=== PATIENT | male | born 1970 | race Caucasian/White ===

== ENCOUNTER 2020-01-06 10:43 | Outpatient (CLI) | payer OTHER ==
--- NOTE | 2020-01-06 10:54 | SLEEP CARE CONSULTATION ---
Information from patient questionnaire entered by Sarai Adan. I have reviewed and concur with the information entered by Sarai Adan. This document represents the service I personally performed and the decisions made by me, Shahana Wilson ARNP. History of Present Illness Service Date and Time: 01/06/2020 1020 Reason for Visit: New patient Chief Complaint: reports: Unrefreshed sleep, Snoring (for a couple years), Excessive daytime sleepiness (needs a nap daily), Observed pauses in breathing (seen by SO), Frequent awakenings at night. denies: Insomnia, Fatigue Date of Onset: 1+ YEARS Usual bedtime: [id number]; weekends 0 Time it takes to fall asleep: 10-15 minutes Snores at night: Yes Observed to quit breathing while asleep: Yes Sleeps alone due to snoring: Yes (sometimes) Number of times waking at night: 2-4 Reasons for waking at night: reports: Snoring (especially on his back), Gasping for air, Bathroom, Other (has dreams of being underwater/swimming and then he comes up for air, once a week). 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 His current complaints are unrefreshed sleep, observed pauses in breathing, excessive daytime sleepiness and frequent night awakenings. He states in the last 1-2 years he has had increasing loudness of his snore and his significant other has had to sleep in another room at times. She has witnessed him stop breathing while asleep. Recently, they went on a trip with their 3 children sharing the same hotel room and all were concerned by the snoring and pauses in breathing they witnessed. He decided at that time he needed to get it checked out. His mother and two brothers are all on CPAP machines for sleep apnea. He has always been borderline hypertensive but never had to go on medication. He has had a surgery to repair a deviated nasal septum and some nasal polyps were removed in October of 2018. He thought this might help with his snoring but it did not seem to make a difference. - Parasomnia Symptoms Ever been unable to move upon waking from sleep: Yes (rarely) Walks in sleep: No Talks in sleep: No Ever acted out dreams in sleep: Yes Ever felt weak in the knees when startled or emotional: No Bothered by creepy, crawly, restless sensations in legs: No Problems with memory or concentration: No Subjective Initial [place] Sleepiness Scale score: 12 (in 2019) Past Medical History Past Medical History: reports: Other (some reflux in past related to stress and sometimes with alcohol). 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 Patient is Single and lives in [place]. Have you smoked in the past 12 months: No Alcohol use: Yes Alcohol amount and frequency: 3-4 weekly Caffeine use: Yes Caffeine amount and frequency: 6-8 cups/day Family History Family history of sleep disordered breathing: Yes Family Hx Sleep Apnea: Mother: Snoring, Sleep apnea - Treated, Sibling: Snoring, Sleep apnea - Treated Allergies and Home Medications Drug allergies reviewed: Yes (NKDA) Home medication list reviewed: Yes Allergy and home medication list: Flonase and Claritin, seasonal Naproxen, prn Review of Systems Weight gain over past 5 years: 15 Cardiovascular: denies: high blood pressure, palpitations, chest pain, irregular heart rate or pulse, leg or foot swelling Respiratory: denies: shortness of breath Gastrointestinal: denies: heartburn, difficulty swallowing Urinary: denies: impotence Neurological: reports: headaches (2-4 times a week, respond to coffee). denies: seizure, head trauma, speech dysfunction, gait or balance problems Psychiatric: denies: anxiety, depression, mood disorder, claustrophobia Ear/Nose/Throat: reports: sinus problems (deviated septum surgery repair and polyps removed, October 2018), wisdom teeth removed. denies: nasal congestion, nose bleeds, tonsillectomy Endocrine: denies: thyroid disease Musculoskeletal: reports: joint pain Immunologic: reports: allergies to food or environment (seasonal allergies) Physical Exam Blood Pressure: 128/72 Cuff size: long Heart Rate: 73 O2 Saturation: 96 Height: 6 ft 1 in Weight: 225 lb Body Mass Index: 29.7 BMI Classification: Overweight Neck circumference: 17 (inches) HEENT: No craniofacial malformation Nostrils: patent to airflow Turbinates: swollen Septum: deviated left Mouth and throat: narrow oropharynx Soft palate: normal Hard palate: arched Uvula: normal Uvula visualization: 50% Mallampati Class II Tongue: normal in size Tonsils: 1+ Chin and jaw: normal size and position Neck: normal w/o lymphadenopathy or thyromegaly Heart: regular rate and rhythm Lungs: clear bilaterally Impression and Plan 1. Suspected Obstructive Sleep Apnea-Hypopnea Syndrome, as suggested by a history of loud and irregular snoring, observed cessation of breath while asleep, gasping or choking in sleep, morning headache, frequent awakening during the night, unrefreshed sleep, and excessive daytime sleepiness. I reviewed with patient that a narrow oropharynx and obesity are common predisposing factors for obstructive sleep apnea-hypopnea syndrome. I recommend proceeding to polysomnography to confirm the diagnosis and to assess severity. If the patient has significant sleep disordered breathing, a manual CPAP titration study will also be performed to find the optimal treatment pressure. I informed the patient of what the sleep studies involve and after some discussion, obtained agreement to proceed. The pathophysiology of obstructive sleep apnea-hypopnea syndrome was discussed with the patient and health risks of cardiovascular and cerebrovascular disease if not treated. AASM brochure for obstructive sleep apnea-hypopnea syndrome given and reviewed. Risks of drowsy driving discussed in detail and patient advised to avoid long distance driving and to truss puller helper at the first sign of drowsiness. Patient agreed to plan. * Schedule polysomnography +- manual CPAP titration study. * Avoid long distance driving or driving when feeling sleepy. * Avoid alcohol, sedative and muscle relaxant around bedtime. * Attempt to lose weight. * Review instructions provided by trained office staff on how to prepare for the sleep study. * Return for follow-up after sleep study completed. Visit Type: In Office Time Spent with Patient (minutes): 34 Provider Statement: I spent 100% of the Face to Face Visit with the patient with greater than 50% spent counseling the patient and coordination of care.
[2020-01-06 10:55] VITALS: BP 128/72
== END 2020-01-06 10:44 | disposition home or self-care (01) ==
LOC: SC 10:43
PROVIDERS: ATTEND Nurse Practitioner Family
DX: R06.83 Snoring (principal); G47.10 Hypersomnia, unspecified; G47.8 Other sleep disorders; R06.81 Apnea, not elsewhere classified; E66.3 Overweight; Z68.29 Body mass index [BMI] 29.0-29.9, adult
CPT/HCPCS: 99204; 99212

== ENCOUNTER 2020-03-17 07:51 | Outpatient (CLI) | payer OTHER ==
--- NOTE | 2020-03-19 09:00 | MRI Report ---
PROCEDURE: Knee LT W/O INDICATIONS: LT KNEE PAIN TECHNIQUE: Noncontrast sagittal PD fast spin echo and T2 fast spin echo with fat saturation, sagittal 3-D spoile d GE with fat saturation; coronal T1 spin echo and PD fast spin echo with fat saturation, and axial P D fast spin echo with fat saturation through the knee. COMPARISON: None. FINDINGS: Image quality: Excellent. Menisci: There is increased signal in the posterior horn and body of the medial meniscus that approa ches and likely communicates with the inner third of the tibial articular surface. Additionally, ther e is a small hypointense structure adjacent to the posterior root attachment of the medial meniscus t hat may represent a small centrally displaced meniscal flap fragment. There is no significant menisca l extrusion. The lateral meniscus is intact. Cruciate ligaments: The anterior and posterior cruciate ligaments appear intact. Medial structures: The medial collateral ligament appears intact. The semimembranosus tendon insert ions appear intact. Visualized portions of the pes anserinus tendons appear normal. Lateral structures: The lateral collateral ligament, long and short heads of the biceps femoris tend on appear intact. The popliteus tendon appears intact. Iliotibial band appears normal. Anterior structures: A small enthesophyte is seen at the quadriceps tendon insertion. The patellar te ndon is intact. Patellar alignment is normal. No femoral trochlear dysplasia or ventral trochlear pr ominence. No edema in the infrapatellar fat pad. Bones and cartilage: No bone marrow contusion or acute fracture. There is mild surface irregularity of the central weightbearing portion of the medial femoral condyle articular surface. The lateral co mpartment articular cartilage is intact. There is mild surface irregularity at the median ridge of th e patella. Moderate to high-grade cartilage loss is seen at the trochlear groove with mild subchondra l edema. There is cartilage loss is poorly defined, but measures approximately 4 x 5 mm. Joint space and soft tissues: There is a small joint effusion. There is no medial popliteal cyst. M ild nonspecific prepatellar subcutaneous soft tissue edema is noted. IMPRESSION: 1. Probable horizontal oblique tear at the posterior horn and body of the medial meniscus extending to the inner third of the tibial articular surface. There is also likely a small centrally displaced meniscal flap fragment adjacent to the posterior root attachment of the medial meniscus. 2. 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 Grade 2 krystal dral malacia seen in the medial femorotibial compartment. 3. Small joint effusion. Reviewed by: Braeden Rock MD on 03/19/2020 8:58 AM PST Approved by: Braeden Rock MD on 03/19/2020 8:58 AM PST Station ID: [id number]
== END 2020-03-17 07:52 | disposition home or self-care (01) ==
LOC: DI 07:51
PROVIDERS: ATTEND Student in an Organized Health Care Education/Training Program
DX: M94.262 Chondromalacia, left knee (principal)

== ENCOUNTER 2020-05-08 20:30 | Outpatient (CLI) | payer OTHER | END 2020-05-08 20:31 | disposition home or self-care (01) | LOC: SC 20:30 | PROVIDERS: ATTEND Nurse Practitioner Family | DX: Z53.9 Procedure and treatment not carried out, unspecified reason (principal) ==

== ENCOUNTER 2020-05-21 08:59 | Outpatient (CLI) | payer OTHER | END 2020-05-21 09:00 | disposition home or self-care (01) | LOC: SC 08:59 | PROVIDERS: ATTEND Nurse Practitioner Family | DX: G47.33 Obstructive sleep apnea (adult) (pediatric) (principal); R09.02 Hypoxemia | CPT/HCPCS: 95806 ==

== ENCOUNTER 2020-05-28 13:51 | Outpatient (CLI) | payer OTHER ==
--- NOTE | 2020-05-28 14:25 | SLEEP CARE CONSULTATION ---
Information from patient questionnaire entered by Dre Martinez. I have reviewed and concur with the information entered by Dre Martinez. This document represents the service I personally performed and the decisions made by me, Yunior Hinton MD, [facility]. History of Present Illness Service Date and Time: 05/28/2020 1351 Initial [place] Sleepiness Scale score: 12 (in 2019) Current [place] Sleepiness Scale score: 12 Additional HPI information: HPI: Mr. Rdz returned for follow up of the sleep study he had last week. The test showed that mild obstructive sleep apnea-hypopnea with an AHI of 5.1 and maryjane oxygen saturation of 84%. The respiratory events occurred only during supine sleep. The patient was informed of these findings. I explained to him the pathophysiology behind obstructive sleep apnea. We then spent quite a bit of time discussing different treatment options. For mild obstructive sleep apnea, surgery and oral appliance are alternatives to nasal CPAP therapy but in moderate or severe cases, nasal CPAP is the most effective and reliable treatment. Weight loss in an obese individual is strongly recommended. After some discussion, he opted to go with the nasal CPAP therapy. I explained to him how CPAP machine works and what to expect when using the machine. He is quite familiar with the treatment because his mother uses a CPAP and is staying with him. Sleep Study - Results Type of Sleep Study: Home sleep study Prior sleep studies: No Allergies and Home Medications Drug allergies reviewed: Yes Home medication list reviewed: Yes Review of Systems Review of systems same as previous: Yes Physical Exam Vital signs obtained and entered by: To minimize the risk of COVID-19 exposure, detailed exam was not perfo Height: 6 ft 1 in Weight: 225 lb Body Mass Index: 29.7 BMI Classification: Overweight Impression and Plan IMPRESSION: 1. Obstructive Sleep Apnea-Hypopnea Syndrome, mild, associated with mild hypoxemia. Possibly, this is the cause of the patients symptoms of unrefreshed sleep, persistent fatigue, and excessive daytime sleepiness. As mentioned above, the patient will be started on an CPAP set at 5 - 15 cmH2O. Depending on his response and compliance he may be brought back for an overnight CPAP titration study. PLAN: 1. Prescription made for an autoCPAP, heated humidifier, and related supplies. 2. Attempt to lose weight and avoid alcohol consumption near bedtime. 3. Return for a follow up after a month of using CPAP. Visit Type: In Office Time Spent with Patient (minutes): 20 Provider Statement: I spent 100% of the Face to Face Visit with the patient with greater than 50% spent counseling the patient and coordination of care.
== END 2020-05-28 13:52 | disposition home or self-care (01) ==
LOC: SC 13:51
PROVIDERS: ATTEND Internal Medicine Pulmonary Disease
DX: G47.33 Obstructive sleep apnea (adult) (pediatric) (principal); E66.3 Overweight; Z68.29 Body mass index [BMI] 29.0-29.9, adult
CPT/HCPCS: 99212; 99213

== ENCOUNTER 2020-07-17 07:58 | Outpatient (CLI) | payer OTHER ==
--- NOTE | 2020-07-17 08:25 | SLEEP CARE CONSULTATION ---
Information from patient questionnaire entered by Jazzmine Saldaña. I have reviewed and concur with the information entered by Jazzmine Saldaña. This document represents the service I personally performed and the decisions made by Steve jade Caren J, ARNP. History of Present Illness Service Date and Time: 07/17/2020 0758 Previous diagnosis: Mild, Obstructive Sleep Apnea-Hypopnea Syndrome AHI: 5.1 (in 2020) Reason for follow up: first compliance Equipment type: CPAP Equipment obtained from: [facility] (got initial supplies; very responsive to calls/questions) Mask style: Nasal (under nose) Backup mask available: Yes (other mask) Last cushion change: 1 month Prior sleep studies: Yes Year and Where: 2020 - [facility] Sleep Type of Sleep Study: Home sleep study HPI additional information: CECILIO RODRIGUEZ was diagnosed to have mild, AHI 5.1, obstructive sleep apnea- hypopnea syndrome and returned today for CPAP therapy first compliance follow- up. CPAP Compliance Data - Data Reviewed with Patient Average duration of nightly device use: 5 hr 43 min Compliance rate %: 80 Current pressure setting (cmH2O): 4-20 (median 5.2, avg 10.3, max 12.2) Humidity settin Average residual AHI: 1.4 Subjective Missed days of use due to: reports: travel Patient concerns: reports: mask leak noise. denies: aerophagia, mask discomfort, air blowing in eyes, condensation in mask/hose, nasal congestion, dry mouth, nose, throat, epistaxis, other Observed to snore while using device: No Current pressure setting perceived as: too high On therapy, patient: reports: sleeping better, awakening more refreshed, being more awake and alert during the day, more rested overall. denies: drowsiness while driving Initial [place] Sleepiness Scale score: 12 (in 2019) Current [place] Sleepiness Scale score: 5 Allergies and Home Medications Home medication list reviewed: Yes (no changes) Review of Systems Review of systems same as previous: Yes (no changes) Physical Exam Heart Rate: 61 O2 Saturation: 94 Height: 6 ft 1 in Weight: 232 lb Body Mass Index: 30.6 BMI Classification: Obese Impression and Plan 1. Obstructive Sleep Apnea-Hypopnea Syndrome, mild, with good treatment compliance and good apnea control. On CPAP therapy, the patient has better sleep quality and is more rested overall. He is really satisfied with CPAP use so far but occasionally gets some mask leak noised when sleeping on his side. Mask leaks can be reduced by washing mask daily and changing mask cushions more frequently to improve mask seal and comfort. Additionally, mask leaks predominately from when patient sleeps on their side can be reduced by using a CPAP pillow. A CPAP pillow sample was shown. This and other styes can be purchased online. He voiced understanding. Patient's apnea severity and rationale for treatment to reduce apnea, improve sleep quality and reduce cardiovascular and cerebrovascular events was reviewed. * Change auto CPAP pressure to 5-10 cmH2O * Notify me if snoring with mask or feeling that the pressure is too much or too little * Attempt to lose weight * Call this office if any problems using CPAP * Return for follow up in 1-2 months, or sooner if concerns arise Counseling Topics: Spare mask, Weight control Visit Type: In Office Time Spent with Patient (minutes): 20 Provider Statement: I spent 100% of the Face to Face Visit with the patient with greater than 50% spent counseling the patient and coordination of care.
== END 2020-07-17 07:59 | disposition home or self-care (01) ==
LOC: SC 07:58
PROVIDERS: ATTEND Nurse Practitioner Family
DX: G47.33 Obstructive sleep apnea (adult) (pediatric) (principal); E66.9 Obesity, unspecified; Z68.30 Body mass index [BMI] 30.0-30.9, adult
CPT/HCPCS: 99212; 99213

== ENCOUNTER 2020-09-18 08:01 | Outpatient (CLI) | payer OTHER ==
--- NOTE | 2020-09-18 08:33 | SLEEP CARE CONSULTATION ---
Information from patient questionnaire entered by Jazzmine Saldaña. I have reviewed and concur with the information entered by Jazzmine Saldaña. This document represents the service I personally performed and the decisions made by Steve jade Caren J, ARNP. History of Present Illness Service Date and Time: 09/18/2020 0801 Previous diagnosis: Mild, Obstructive Sleep Apnea-Hypopnea Syndrome AHI: 5.1 (in 2020) Reason for follow up: other (2 month with pressure change) Equipment type: CPAP Equipment obtained from: [employer] (got initial supplies) Mask style: Nasal (under nose) Mask brand: Resmed Backup mask available: Yes Last cushion change: 2 month Prior sleep studies: Yes Year and Where: 2020 - [facility] Sleep Type of Sleep Study: Home sleep study HPI additional information: CECILOI RODRIGUEZ was diagnosed to have mild, AHI 5.1, obstructive sleep apnea- hypopnea syndrome and returned today for CPAP therapy 2 month with pressure change follow-up. CPAP Compliance Data - Data Reviewed with Patient Average duration of nightly device use: 5 hr 46 min Compliance rate %: 88 (60 days) Current pressure setting (cmH2O): 5-10 Humidity settin Average residual AHI: 0.6 Subjective Patient concerns: reports: nasal congestion. denies: aerophagia, mask discomfort, air blowing in eyes, mask leak noise, condensation in mask/hose, dry mouth, nose, throat, epistaxis, other Observed to snore while using device: No Current pressure setting perceived as: comfortable On therapy, patient: reports: sleeping better, awakening more refreshed, being more awake and alert during the day, more rested overall. denies: drowsiness while driving Initial [place] Sleepiness Scale score: 12 (in 2019) Current [place] Sleepiness Scale score: 6 Allergies and Home Medications Home medication list reviewed: Yes (claritin, naproxen) Review of Systems Review of systems same as previous: Yes (no changes) Physical Exam Heart Rate: 55 O2 Saturation: 97 Height: 6 ft 1 in Weight: 230 lb Body Mass Index: 30.3 BMI Classification: Obese Impression and Plan 1. Obstructive Sleep Apnea-Hypopnea Syndrome, mild, with good treatment compliance and excellent apnea control. On CPAP therapy, the patient has better sleep quality and is more rested overall. He has significant improvement of his apneas and is very satisfied with his treatment. He feel as if the difference it between night and day from before CPAP and after. He intends to continue with CPAP therapy long-term. He has had some increased nasal congestion that may just be due to allergies. He has started taking his daily claritin. Nasal congestion can be reduced with increasing the CPAP humidity as shown on sample device. The heated hose can be adjusted higher if condensation with higher humidity setting. Saline nasal spray may also be used use prior to CPAP to clear nasal secretions and wash off any nasal allergens to facilitate nasal breathing. In addition, a steamy shower before bed will often assist nasal drainage. He voiced understanding. Patient's apnea severity and rationale for treatment to reduce apnea, improve sleep quality and reduce cardiovascular and cerebrovascular events was reviewed. * Continue auto CPAP pressure at 5-10 cmH2O * Notify me if snoring with mask or feeling that the pressure is too much or too little * Attempt to lose weight * Call this office if any problems using CPAP * Return for follow up in 3 months, or sooner if concerns arise Counseling Topics: Spare mask, Weight loss health impact Visit Type: In Office Time Spent with Patient (minutes): 14 Provider Statement: I spent 100% of the Face to Face Visit with the patient with greater than 50% spent counseling the patient and coordination of care.
== END 2020-09-18 08:02 | disposition home or self-care (01) ==
LOC: SC 08:01
PROVIDERS: ATTEND Nurse Practitioner Family
DX: G47.33 Obstructive sleep apnea (adult) (pediatric) (principal); E66.9 Obesity, unspecified; Z68.30 Body mass index [BMI] 30.0-30.9, adult
CPT/HCPCS: 99212